=== PATIENT | female | born 1985 ===

== ENCOUNTER 2016-10-16 06:11 | Inpatient (IN) ==
[2016-10-13 10:53] LABS: Basophils % 0.2 % (0.0-0.8); Eosinophils # 0.2 10*3/uL (0.0-0.87); Eosinophils % 4.9 % (0.00-10.9); Hematocrit 30.6 VOL% (35.7-47.0); Hemoglobin 9.7 GM/DL (12.0-16.0); Immature Granulocytes % 0.2 %; Immature Granulocytes Absolute 0.01 #; Lymphocytes # 1.7 10*3/uL (1.4-4.0); Lymphocytes % 37.1 % (21.3-54.2); Mean Corpuscular HGB Conc 31.7 GM/DL (32-36); Mean Corpuscular Hemoglobin 24 PG (27-34); Mean Corpuscular Volume 74.1 FL (87-102); Mean Platelet Volume 9.2 FL (9.6-12.0); Monocytes # 0.4 10*3/uL (0.11-0.8); Monocytes % 7.9 % (1.7-12.7); Neutrophils # 2.3 10*3/uL (1.4-7.4); Neutrophils % 49.7 % (38.7-73.9); Platelet Count 290 T/CUMM (130-400); Red Blood Count 4.13 MC/CUMM (3.8-5.5); White Blood Count 4.7 T/CUMM (4-12)
[2016-10-13 11:24] LABS: Calcium 8.3 MG/DL (8.5-10.1); Osmolality,Calculated 280.3 MOS/KG (273-304); Potassium 4.3 MMOL/L (3.5-5.1)
[~2016-10-16 06:11] MED LIST: FAMOTIDINE 20 MG TABLET ONE; LORazepam 1 MG TABLET ONE; SODIUM CHLORIDE 0.9% 0 ML IV ONE; ceFAZolin 1,000 MG VIAL ONE
[2016-10-16] MEDS ORDERED: BUPIVACAINE MPF 0.25% /EPI 30 ML VIAL ONE (06:34)
[2016-10-16] MEDS ORDERED: ceFAZolin 1,000 MG VIAL ONE (06:34)
[2016-10-16] MEDS: LACTATED RINGERS 1,000 ML IV SCH (06:50)
[2016-10-16] MEDS ORDERED: VANCOMYCIN INJ 1,000 MG in SODIUM CHLORIDE 0.9% 250 ML IV ONE (06:53)
[2016-10-16] MEDS ORDERED: VANCOMYCIN 1,000 MG VIAL ONE (07:00)
[2016-10-16] MEDS ORDERED: VANCOMYCIN 500 MG VIAL ONE (07:36)
[2016-10-16] MEDS ORDERED: DESFLURANE 1 UNIT/15 MINUTE INH ONE (09:52)
[2016-10-16] MEDS ORDERED: ACETAMINOPHEN 1,000 MG/100 ML VIAL IV ONE (09:53)
[2016-10-16] MEDS ORDERED: MIDAZOLAM 2 MG/2 ML VIAL ONE (09:53)
[2016-10-16] MEDS ORDERED: fentaNYL 100 MCG/2 ML VIAL ONE (09:53)
[2016-10-16] MEDS ORDERED: MORPHINE 2 MG/1 ML SYRINGE IV PRN (10:00)
[2016-10-16] MEDS ORDERED: ONDANSETRON 4 MG/2 ML VIAL IV PRN (10:00)
--- NOTE | 2016-10-16 10:00 | Operative Note ---
Date of procedure: 10/16/16 Pre-op diagnosis: Complex recurrent lower midline incisional hernia Post-op diagnosis: same Procedure: Repair of complex recurrent incarcerated lower midline incisional hernia with 15 x 22 cm pre peritoneal polypropylene mesh Findings and technique: After informed consent was obtained the patient was brought to the operating room and placed in supine position. After successful induction with general anesthesia the patient's abdomen was prepped and draped in usual sterile fashion. Local anesthesia was infiltrated and a vertical lower midline incision made about 6 cm in length over the palpable mass in the lower midline. Sharp dissection was carried down to the hernia sac which was very extensive and the sac contains some adherent omentum incarcerated within it and the sac dissected laterally to the right in the left in her large abdominal pannus. The sac was completely freed up and opened and the omentum reduced back into the peritoneal cavity. Sac was dissected back to the fascial defect which was oval-shaped vertically and consisted of separation of the midline fascia and muscle in the lower midline. The excess sac was excised and the peritoneum closed with running 3-0 Vicryl suture. The preperitoneal dissection was then carried out for about 15 cm laterally to the right and the left in the preperitoneal space and the dissection was carried down into the space of Retzius behind the pubic bone and superiorly to behind the umbilicus. Following this I freed up the fascia anteriorly from the overlying scar and subcutaneous tissue so that it regained its mobility back to the midline. I then took a piece of polypropylene mesh and cut in an oval shape to lay flat in the preperitoneal space. This was anchored about 5 cm back from the fascial edges with interrupted Prolene suture full-thickness through all the fascial and muscle layers anchoring it with multiple sutures laterally and several sutures inferiorly just above the pubic tubercle where the mesh overlapped behind the pubic symphysis. The midline fascia was then closed after the mesh had been anchored laterally. This was accomplished with a running 0 Prolene suture. This large subcutaneous space was drained with a 10 mm GUIDO drain which was brought through separate stab incision laterally. The mesh had been irrigated with antibiotic saline solution. The midline wound which was actually rather small was closed with interrupted Vicryl suture in the subcutaneous space and skin with skin clips. She appeared to tolerate the procedure well and had no apparent complications. This patient has had bilateral component separation in the past so this procedure was not performed at this setting. Anesthesia: GETA, local Surgeon / Physician: Nader Duke III. Estimated blood loss: minimal Specimens: none sent Condition: stable Disposition: PACU Results - Labs CBC & BMP: 10/13/16 10:44 10/13/16 10:44 Discharge Plan - Discharge Medications No Action No Known Home Medications [No Known Home Medications] - Follow Up or Referral - Forms/Instructions
--- NOTE | 2016-10-16 14:37 | Anesthesia Post-Op ---
Anesthesia Post OP - Post Ansesthetic Evaluation Patient seen in post op: Yes Resp: within normal limits CV: within normal limits Mental: within normal limits Temp: within normal limits Tiln-Hf-Uamnmmeda: within normal limits Nausea and Vomiting: within normal limits Pain: within normal limits
[2016-10-16] MEDS ORDERED: ACETAMINOPHEN 325 MG TABLET PO PRN (15:12)
--- NOTE | 2016-10-16 15:52 | Event Note ---
Patient is postop day #0 status post incisional hernia repair. Patient is lying in bed reporting her pain is adequately controlled. Denies nausea, vomiting diarrhea, chest pain, shortness of breath, wheeze or cough. She is tolerated soft foods are p.o. intake and liquids at this time. Vitals are stable Lungs clear to auscultation bilaterally Heart regular rhythm Abdomen soft and appropriately tender to palpation with surgical incisions that are clean dry and intact. Bowel sounds are present Extremities: No calf tenderness or pedal edema is appreciated Assessment and plan: Patient appears to be stable postop day #0. Continue current plan of care. Advance diet and activity as tolerated. Pain management. Anticipate discharge in a.m.
[2016-10-17 09:19] LABS: Calcium 8.2 MG/DL (8.5-10.1)
--- NOTE | 2016-10-17 12:54 | Event Note ---
S: Patient is postop day #1 status post ventral hernia repair with mesh. She reports overnight her pain was well controlled. She has mobilized it is voiding without difficulty. She is passing flatus. She has minimal appetite and has tolerated minimal oral intake with associated nausea without vomiting. O: VSS; GUIDO output 130 cc p/o; 150 cc since midnight Surgical incision clean, dry and intact with radu intact. No active drainage. GUIDO drain with serosanguineous fluid. Abdomen soft, nondistended and appropriately tender postoperatively. Bowel sounds present Extremities without pedal edema. Calf soft and nontender Labs: BMP unremarkable A/P POD #1 s/p ventral hernia repair with mesh - stable. Pt will require additional hospitalization until tolerating diet better. Continue abd binder Slowly advance diet as tolerated - monitor bowel function. Support with IVF Increase activity - mobilization encouraged DVT ppx: SCD; start lovenox today GI ppx: PPI daily Dispo: anticipate d/c home when tolerating diet better
[2016-10-17] MEDS: SODIUM CHLORIDE 0.9% 1,000 ML IV SCH ×2 (13:08→23:38)
[2016-10-17] MEDS: ENOXAPARIN 40 MG/0.4 ML SYRINGE SUBCUT SCH (13:08)
[2016-10-17] MEDS: LACTATED RINGERS 1,000 ML IV SCH (13:10)
--- NOTE | 2016-10-17 14:50 | Discharge Summary ---
Hospital Course - Hospital Course Hospital Course: Patient is a 31-year-old female who underwent repair of complex recurrent incarcerated abdominal incisional hernia with mesh placement. Postoperatively, we advance her diet slowly as she experienced significant nausea initially. Ultimately she was tolerating oral intake without difficulty, voiding without difficulty and passing flatus without difficulty. Pain was adequately controlled. Instructions were provided to maintain the abdominal binder to prevent recurrence and or complication. GUIDO drain to remain in place. Follow with Dr. Duke in 1 week. She was ultimately discharged home in good condition. Diagnosis - Discharge Diagnosis (1) Recurrent incisional hernia Status: Acute Specialty Discharge - Follow Up or Referrals Follow up with: Nader Duke III., MD [Physician] - 1 Week (Call Thursday (10/20/2016) to schedule a follow up appointment with Dr. Leilani BROOKS for one week after discharge. Keep a record of your drain output and provide to him at your appointment. ) Discharge Plan - Discharge Data Disposition: Disch To Home/Self Care Condition at Discharge: Stable Discharge Diet: advance to your usual diet Activity: no lifting, other (Wear abdominal binder at all times. ) Hygiene: may shower Driving: not until seen by doctor Contact your physician if you experience:: fever over 101, Difficulty voiding, Redness or swelling, Nausea/Vomiting, Shortness of breath, Bleeding, pain uncontrolled by pain medications Wound / Dressing Care Instructions: -Keep surgical incisions clean, dry and covered. -Change GUIDO drain dressing daily. -Empty GUIDO drain twice daily - maintain log of amount of fluid emptied and bring to appointment with Dr. Duke. - Discharge Medications New HYDROcodone/ACETAMIN 7.5-325 [[place] 7.5-325] 1 tablet PO Q4H PRN #30 tablet PRN Reason: Pain Moderate To Severe (4-10) - Follow Up or Referral Follow Up: Nader Duke III., MD [Physician] - 1 Week (Call Thursday (10/20/2016) to schedule a follow up appointment with Dr. Leilani BROOKS for one week after discharge. Keep a record of your drain output and provide to him at your appointment. ) - Forms/Instructions Instructions: Gene Willams Drain Care Instructions, Abdominal Binder (DC), Open Herniorrhaphy (DC) Exam - Constitutional Vitals: Period Temp Pulse Resp BP Sys/Park Pulse Ox Last 24 Hr 96.9 F-98.5 F 66-94 18-20 102-122/63-78 96-99 Discharge Results Labs on day of discharge: Labs from last 24 hours 10/17/16 07:52 Sodium 136 Potassium 4.0 Chloride 103 Carbon Dioxide 27 Anion Gap 10.0 BUN 9 Creatinine 0.50 L GFR Calculation 147 BUN/Creatinine Ratio 18.00 Glucose 89 Calculated Osmolality 269.0 L Calcium 8.2 L DS: Provider Date of admission: 10/16/2016 Primary care physician: Drake Agudelo MD Attending physician on admission: Nader Doeups, III Consults: None Discharging clinician: Gayatri Sofia PA-C
[2016-10-18] MEDS: SODIUM CHLORIDE 0.9% 1,000 ML IV SCH (08:46)
[2016-10-18 11:38] VITALS: BP 118/72
[2016-10-18] MEDS: ENOXAPARIN 40 MG/0.4 ML SYRINGE SUBCUT SCH (12:44)
--- NOTE | 2016-10-18 13:59 | Event Note ---
Afebrile vital signs stable. Patient is feeling much better today. She has been ambulating without problems. She is tolerating a diet. Her pain has improved. Abdomen is soft and appropriately tender and nondistended. GUIDO drain with moderate serosanguineous output. Will plan to discharge home with GUIDO drain in place. Will teach GUIDO drain care and she will keep a drain journal and follow up with Dr. Duke in approximately a week. She is instructed to call sooner for any fever, nausea, vomiting, worsening abdominal pain, redness or drainage from the incisions or any other concern.
== END 2016-10-18 14:49 | disposition home or self-care (01) | DRG 355 ==
LOC: N.SDSINP 06:11 → N.OR 06:11 → N.SDSINP 06:12 → EDSTATUS 07:30 → N.2E 10:00 → N.OR 10-18 14:49 → N.2E 10-20 10:28
PROVIDERS: ADMIT Surgery; ATTEND Surgery

== ENCOUNTER 2017-08-25 11:51 | Inpatient (IN) ==
[2017-08-25] MEDS ORDERED: ALBUTEROL/IPRATROPIUM 3 ML NEB RESP TX PRN (13:34)
[2017-08-25] MEDS ORDERED: ONDANSETRON 4 MG/2 ML VIAL IV PRN (13:34)
[2017-08-25] MEDS ORDERED: MORPHINE 2 MG/1 ML SYRINGE IV PRN (13:34)
[2017-08-25] MEDS: metroNIDAZOLE INJ 500 MG in PREMIX 1 EACH IV SCH ×2 (14:14→23:25)
[2017-08-25] MEDS: LEVOFLOXACIN INJ 500 MG in PREMIX 1 EACH IV SCH (15:10)
[2017-08-25] MEDS ORDERED: GLUCAGON 1 MG VIAL IM PRN (15:59)
[2017-08-25 18:42] LABS: Basophils % 0.2 % (0.0-0.8); Eosinophils # 0.3 10*3/uL (0.0-0.87); Eosinophils % 4.7 % (0.00-10.9); Hematocrit 27.8 VOL% (35.7-47.0); Hemoglobin 8.4 GM/DL (12.0-16.0); Immature Granulocytes % 0.2 %; Immature Granulocytes Absolute 0.01 #; Lymphocytes # 1.1 10*3/uL (1.4-4.0); Lymphocytes % 18.3 % (21.3-54.2); Mean Corpuscular HGB Conc 30.2 GM/DL (32-36); Mean Corpuscular Hemoglobin 22 PG (27-34); Mean Corpuscular Volume 73.4 FL (87-102); Mean Platelet Volume 8.5 FL (9.6-12.0); Monocytes # 0.4 10*3/uL (0.11-0.8); Monocytes % 6.4 % (1.7-12.7); Neutrophils # 4.3 10*3/uL (1.4-7.4); Neutrophils % 70.2 % (38.7-73.9); Platelet Count 379 T/CUMM (130-400); Red Blood Count 3.79 MC/CUMM (3.8-5.5); Red Cell Distribution Width 15.5 % (9.3-17.3); White Blood Count 6.1 T/CUMM (4-12)
[2017-08-26] MEDS: metroNIDAZOLE INJ 500 MG in PREMIX 1 EACH IV SCH ×3 (06:07→22:00)
[2017-08-26 07:05] LABS: Basophils % 0.3 % (0.0-0.8); Eosinophils # 0.2 10*3/uL (0.0-0.87); Eosinophils % 2.3 % (0.00-10.9); Hemoglobin 8.4 GM/DL (12.0-16.0); Immature Granulocytes % 0.1 %; Immature Granulocytes Absolute 0.01 #; Lymphocytes # 1.2 10*3/uL (1.4-4.0); Lymphocytes % 16.9 % (21.3-54.2); Mean Corpuscular HGB Conc 31.1 GM/DL (32-36); Mean Corpuscular Hemoglobin 22 PG (27-34); Mean Platelet Volume 8.6 FL (9.6-12.0); Monocytes # 0.6 10*3/uL (0.11-0.8); Monocytes % 8.6 % (1.7-12.7); Neutrophils # 5.1 10*3/uL (1.4-7.4); Neutrophils % 71.8 % (38.7-73.9); Platelet Count 369 T/CUMM (130-400); Red Blood Count 3.75 MC/CUMM (3.8-5.5); Red Cell Distribution Width 15.3 % (9.3-17.3); White Blood Count 7.1 T/CUMM (4-12)
[2017-08-26 07:27] LABS: Calcium 7.8 MG/DL (8.5-10.1); Osmolality,Calculated 272.7 MOS/KG (273-304); Potassium 3.9 MMOL/L (3.5-5.1)
[2017-08-26] MEDS: ENOXAPARIN 40 MG/0.4 ML SYRINGE SUBCUT SCH (09:40)
[2017-08-26] MEDS: LEVOFLOXACIN INJ 500 MG in PREMIX 1 EACH IV SCH (13:13)
[2017-08-27] MEDS: metroNIDAZOLE INJ 500 MG in PREMIX 1 EACH IV SCH (05:59)
[2017-08-27] MEDS ORDERED: SODIUM HYPOCHLORITE 0.25% IRRIG 473 ML BOTTLE TOP SCH (09:00)
[2017-08-27] MEDS: ENOXAPARIN 40 MG/0.4 ML SYRINGE SUBCUT SCH (09:41)
[2017-08-27 12:13] VITALS: BP 120/69
[2017-08-27] MEDS: LEVOFLOXACIN INJ 500 MG in PREMIX 1 EACH IV SCH (14:21)
== END 2017-08-27 16:00 | disposition home or self-care (01) | DRG 721 ==
LOC: N.5E 12:54
PROVIDERS: ADMIT Surgery; ATTEND Surgery